=== PATIENT | female | born 2000 | race Caucasian/White ===

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

== ENCOUNTER 2019-09-07 20:01 | Emergency (ER) | payer OTHER ==
--- OUTSIDE RECORDS SUMMARY | 2019-09-07 20:03 | XMS REPORT ---
:2000 Author Organization eClinicalWorks Care Team Providers Name Role Phone Rusty Zulma Provider Role Unavailable Allergies No Known Allergies Problems No Known Problems Medications Medication Code System Code Instructions Start Date End Date Status Dosage Cipro [facility] [id number] 500 MG Orally Feb 01, Feb 02, Active 1 ta blet once a day 2018 2018 Results No Known Results Summary Purpose eClinicalWorks Submission
--- OUTSIDE RECORDS SUMMARY | 2019-09-07 20:03 | XMS REPORT ---
:2000 Author Organization [facility] t Address [address] [place] [address] Care Team Providers Name Role Phone Unavailable Unavailable Unavailable Payers Payer Name Policy Type Policy Number Effective Date Expiration D ate Problems This patient has no known problems. Allergies, Adverse Reactions, Alerts Allergy Name Allergy Status Severity Reaction(s) Onset Inactive Treat ing Comments Type Date Date Clinician Penicillins DA Active U 2019-02 00:00:0 0 Sulfa DA Active U 2019-02 (Sulfonamide -14 Antibiotics) 00:00:0 0 morphine DA Active U 2019-02 00:00:0 0 Medications This patient has no known medications. Results Test Description Test Time Test Comments Text Results Atomic Results Result Comments - US PREG MN 2019-03-13 Patient Name: JESSICA JOHNSON Unit No: [id number] TRANSVAGINAL 11:27:00 EXAMS: CPT CODE: [id number] [facility] TRANSVA GINAL [address] [facility] [address] [place], [place] [address] OBSTETRICAL ULTRASOUND REPORT Pat. Name: ALPESH MALHOTRAALISSA Peters Pat. No: [id number] Study Date: 03/13/2019 10:32am , Age: 06 2000, 18 Pregnancies: 1 LMP: Unk nown GA by US: 04w2d GA Selected: 04w2d (Sonographic) ERIC: 11/18/2019 Referring MD: Richard Moscoso Corrections Caseworker: Ryann Alcazar CPT4: [id number] Admitting MD: Allyssa Moscoso Hist/Ind: VAGINAL BLEEDING SCAN 1 MEASUREMENTS AGE GROWTH EVALUATION Measurement GA Range Srce %for GA Ratios ----- ---- ------- - Sac 0.5 cm 04w2d ([id number]) Hell Sac 50% GA for sonogram 04w2d (34y1s-00n6c) based on (Sac) Avg MATERNAL ANATOMY Ovaries LxHxW (cm) Right 3. 4 x 1.8 x 2.7 Vol: 8.7cc Left 4.4 x 1.8 x 2.2 Vol: 9.1cc Ovarian Cysts LxHxW (cm) L1 : 1.1 x 1.2 x 1.4 Desc: Corpus Luteum CLINICAL SUMMARY THERE IS AN INTRAUTERINE GESTATIONAL SAC WITH YOLK SAC. SIZE IS LESS TH AN LMP DATES BUT PATIENT HAS A HISTORY OF IRREGULAR CYCLES. THE RE IS A SMALL BLEED IN THE FUNDAL REGION-[id number] THE OVARIE S ARE WITHIN NORMAL LIMITS. IMP:EARLY IUP. REC: FOLLOW UP CL INICALLY INDICATED OR IN 2-3 WEEKS FOR PROGRESSION. Th ank you for allowing us to participate in the care of this patient . Loreto Simms M.D. Electro dina Signature 03/13/2019 11:27am [facility] as NAME: JESSICA MALHOTRA Radiology Department PHYS: PANCHITO.Mandy - Richard Moscoso [address] : 2000 AGE: 18 SEX: F [place] [address] LOC: Adalid PETTY PHONE #: [phone] EXAM DATE: 03/13/2019 [facility]: DEP ER FAX #: [phone] RAD NO: Maldonado villarreal 1 Signed Report (CONTINUED) Maldonado vogel Name: JESSICA MALHOTRA Unit No: [id number] EXAMS: CPT CODE: [id number] US PREG UT TRANSVAGINAL 14317 < Continued> Electronically Signed by Elayne Simms MD on 2018 at 1127 Reported and signed by: Elayne rodriguez MD CC: Richard aburto MD Technologist: Alexandra Alcazar, [facility] Probe: [id number] Trnscrbd D/ (1127) t.SDR.CER Orig Print D/T: S: 9 (0800) The [facility] NAME: ALPESH MALHOTRAJOVON Lorraine Radiology Department PHYS: GUTAL.0 1 - TeeRichard [address] : [birth year] AGE: 18 SEX: F [place], [place] [address] LOC: ChynaERS PHONE #: [phone] E XAM DATE: 03/13/2019 STATUS: DEP ER FAX #: [phone] RAD NO: Page 2 Signed Report Patient Name: JESSICA MALHOTRA Unit No: [id number] EXAMS: CPT CODE: [id number] US PREG UT TRANSVAGINAL 28233 <Continued> The [facility] NAME : JESSICA MALHOTRA Radiology Department PHYS: GUTAL.01 - TeeRichard [address] : 2000 AGE: 18 SEX: F [place], [place] [address] LOC: ChynaERS PHONE #: [phone] EXAM DATE: 03/13/2019 STATUS: DEP ER FAX #: RAD NO: Page 3 Signed Report - US PREG 2019-03-13 Patient Name: JESSICA JOHNSON Unit No: [id number] EVAL 1ST 11:27:00 EXAMS: CPT CODE: [id number] US PREG EVAL 1ST T RIMTR [address] [facility] [address] [place], [place] [address] OBSTETRICAL ULTRASOUND REPORT Pat. Name: NIKOS MALHOTRA Pat. No: [id number] Study Date: 03/13/2019 10:32am , Age: 5 2000, 18 Pregnancies: 1 LMP: Unk nown GA by US: 04w2d GA Selected: 04w2d (Sonographic) ERIC: 11/18/2019 Referring MD: RICHARD MOSCOSO Corrections Caseworker: Ryann Alcazar RDMS CPT4: [id number] Admitting MD: ALLYSSA MOSCOSO Hist/Ind: VAGINAL BLEEDING SCAN 1 MEASUREMENTS AGE GROWTH EVALUATION Measurement GA Range Srce %for GA Ratios ----- ---- ------- - Sac 0.5 cm 04w2d (02t2o-04q3j) Hell Sac 50% GA for sonogram 04w2d (14a8m-78m1t) based on (Sac) Avg MATERNAL ANATOMY Ovaries LxHxW (cm) Right 3. 4 x 1.8 x 2.7 Vol: 8.7cc Left 4.4 x 1.8 x 2.2 Vol: 9.1cc Ovarian Cysts LxHxW (cm) L1 : 1.1 x 1.2 x 1.4 Desc: Corpus Luteum CLINICAL SUMMARY THERE IS AN INTRAUTERINE GESTATIONAL SAC WITH YOLK SAC. SIZE IS LESS TH AN LMP DATES BUT PATIENT HAS A HISTORY OF IRREGULAR CYCLES. THE RE IS A SMALL BLEED IN THE FUNDAL REGION-[id number] THE OVARIE S ARE WITHIN NORMAL LIMITS. IMP:EARLY IUP. REC: FOLLOW UP CL INICALLY INDICATED OR IN 2-3 WEEKS FOR PROGRESSION. Th ank you for allowing us to participate in the care of this patient . Loreto Simms M.D. Electro dina Signature 03/13/2019 11:27am [facility] as NAME: JESSICA MALHOTRA Radiology Department PHYS: Richard Moscoso [address] : 2000 AGE: 18 SEX: F [place], [place] [address] LOC: Adalid PETTY PHONE #: [phone] EXAM DATE: 03/13/2019 [facility]: REG ER FAX #: [phone] RAD NO: Maldonado ge 1 Signed Report (CONTINUED) Maldonado vogel Name: JESSICA MALHOTRA Unit No: [id number] EXAMS: CPT CODE: [id number] US PREG EVAL 1ST TRIMTR 17307 < Continued> Electronically Signed by Elayne Simms MD on 2018 at 1127 Reported and signed by: Elayne rodriguez MD CC: Richard aburto MD Technologist: Alexandra Alcazar RDMS Probe: Trnscrbd D/ (1126) t.SDR.CER Orig Print D/T: S: 9 (112) [facility] NAME: ALPESH MALHOTRA Radiology Department PHYS: GUTAL.0 1 - Moscoso,Richard [address] : [birth year] AGE: 18 SEX: F [place], [place] [address] LOC: F.ERS PHONE #: [phone] E XAM DATE: 03/13/2019 STATUS: REG ER FAX #: [phone] RAD NO: Page 2 Signed Report Patient Name: JESSICA MALHOTRA Unit No: [id number] EXAMS: CPT CODE: [id number] US PREG EVAL 1ST TRIMTR 20412 <Continued> The [facility] NAME : JESSICA MALHOTRA Radiology Department PHYS: GUTAL.01 - Moscoso,Richard [address] : 2000 AGE: 18 SEX: F [place], [place] [address] LOC: F.ERS PHONE #: EXAM DATE: 03/13/2019 STATUS: REG ER FAX #: [phone] RAD NO: Page 3 Signed Report HCG SERUM 2019-03-13 11:00:00 Test Item Value Reference Range Comments HCG SERUM (test code = HCG) 5112 INTE RPRETATION:VALUES BETWEEN 15-20 milliInternation al units/mL NEED TO BERETESTED WITHIN 48 HOURS. All units for these ranges are in milliInternation alunits/mL0-1 WK AFTER CONCEPTION 0-50 1-2 WKS AFTER CONCEPTION 40-3002-3 WKS AFTER CONCEPTION 100-1,0003-4 WKS AFTER CONCEPTION 500-6,0001-2 MON THS AFTER CONCEPTION 5,000-200,0002-3 MONTHS AFTER CONCEPTION 10,000-100,0002N D TRIMESTER 3,000-50,0003RD TRIMESTER 1,000-50,000 SPE CIMENS WITH AN HCG LEVEL FROM 0-6 milliInternation alunits/mL SHOULD BE CONSIDERED NEGATIVE COMPREHENSIVE METABOLIC [id number] 10:32:00 Test Item Value Reference Range Comments SODIUM (test code = NA) 141 mEq/L 135-145 POTASSIUM (test code = K) 3.7 mEq/L 3.5-5.0 CHLORIDE (test code = CL) 104 mEq/L 100-115 CARBON DIOXIDE (test code = CO2) 29 mEq/L 22-31 ANION GAP (test code = GAP) 12.00 10-20 GLUCOSE (test code = GLU) 88 mg/dL 65-110 BLOOD UREA NITROGEN (test code = BUN) 7 mg/dL 7-18 GLOMERULAR FILTRATION RATE (test code = GFR) 108 ml/min >60 CREATININE (test code = CREAT) 0.7 mg/dL 0.5-1.0 TOTAL PROTEIN (test code = PROT) 7.4 gm/dL 6.3-8.2 ALBUMIN (test code = ALB) 4.0 gm/dL 3.4-4.8 CALCIUM (test code = CA) 8.6 mg/dL 8.4-10.2 BILIRUBIN TOTAL (test code = BILT) 0.3 mg/dL 0.2-1.0 SGOT/AST (test code = AST) 14 units/L 15-37 SGPT/ALT (test code = ALT) 20 units/L 12-78 ALKALINE PHOSPHATASE TOTAL (test code = ALKP) 51 units/L 46 -116 CBC W/AUTO [id number] 10:16:00 Test Item Value Reference Range Comments WHITE BLOOD CELL (test code = WBC) 5.9 K/mm3 6.6-12.1 RED BLOOD CELL (test code = RBC) 3.94 M/mm3 3.45-5.01 HEMOGLOBIN (test code = HGB) 12.0 g/dL 10.7-13.9 HEMATOCRIT (test code = HCT) 36.1 % 32.1-42.1 MEAN CELL VOLUME (test code = MCV) 92 fL 84.1-94.8 MEAN CELL HGB (test code = MCH) 30.5 pg 27-35 MEAN CELL HGB CONCETRATION (test code = MCHC) 33.2 gm/dL 32 .2-34.1 RED CELL DISTRIBUTION WIDTH (test code = RDW) 12.7 % 12 .4-16.5 PLATELET COUNT (test code = PLT) 223 K/mm3 133-385 IMMATURE PLATELET FRACTION (test code = IPF) 0.0 % 0.0 -10.8 MEAN PLATELET VOLUME (test code = MPV) 10.3 fl 9.1-12.7 NEUTROPHIL % (test code = NT%) 57.4 % 56.5-79.4 LYMPHOCYTE % (test code = LY%) 32.0 % 14.3-34.3 MONOCYTE % (test code = MO%) 8.4 % 5.1-10.4 EOSINOPHIL % (test code = EO%) 1.2 % 0.1-3.0 BASOPHIL % (test code = BA%) 0.8 % 0.1-1.0 NEUTROPHIL # (test code = NT#) 3.4 K/mm3 LYMPHOCYTE # (test code = LY#) 1.9 K/mm3 MONOCYTE # (test code = MO#) 0.5 K/mm3 EOSINOPHIL # (test code = EO#) 0.07 K/mm3 BASOPHIL # (test code = BA#) 0.1 K/mm3 RBC MORPHOLOGY REQUIRED (test code = RBCM) NORMAL LO L PLATELET MORPHOLOGY REQUIRED (test code = PLTMR) NORMAL NORMAL
--- OUTSIDE RECORDS SUMMARY | 2019-09-07 20:04 | XMS REPORT | Summary of Care ---
:2000 Author Organization [facility] Address [address] [place] [address] Care Team Providers Name Role Phone Hal Doherty Primary Care Provider Reason for Referral (Routine) Status Reason Specialty Diagnoses / Referred By Contact Refe rred To Procedures Contact New Request EEG Diagnoses Intractable migraine without aura and without status migrainosus Seizure Syncope and collapse Duglas Cohudhury Procedures Electroencephalogram (EEG) - Duration of test: 20-60 mins MD Lakhwinder [address] [place] [phone] Phone: MRI/CAT Scan (Routine) Status Reason Specialty Diagnoses / Referred By Referred To Procedures Contact Contact New Request Diagnostic Diagnoses Intractable migraine without aura and without status migrainosus Seizure Syncope and collapse Duglas Choudhury Radiology Procedures MR BRAIN WO CONTRAST MD Lakhwinder [address] [place] [phone] Reason for Visit Reason Comments Other spells (Routine) Status Reason Specialty Diagnoses / Procedures Referred By C ontact Referred To Contact Closed Neurology Diagnoses Syncope Migraines Hal Doherty Procedures CONSULT/REFERRAL NEUROLOGY [address] [place] [address] Phone: Encounter Details Date Type Department Care Team Description 07/21/2019 Office Visit [facility] Duglas Choudhury Intractable migraine without aura and without status migrainosus (Primary Dx); [facility] MD Seizure; [address] [place] [address], [address] [place] [phone] Allergies Active Allergy Reactions Severity Noted Date Comments Albuterol Sulfate Other - See comments 07/21/2019 Morphine Hives, Itching 07/21/2019 Penicillins Hives, Shortness of Medium 01/10/2016 Informed by parent Breath Sulfa (Sulfonamide Other - See comments 07/21/2019 C hest pain Antibiotics) documented as of this encounter (statuses as of 07/24/2019) Medications Medication Sig Dispensed Refills Start Date End Date Status lamoTRIgine (LAMICTAL) 150 TAKE ONE (1) 0 12/06/2015 Active mg tablet TABLET(S) BY MOUTH ONCE A DAY. risperiDONE (RISPERDAL) 0.5 TAKE ONE (1) 0 6 Active mg tablet TABLET(S) BY MOUTH ONCE A DAY AT BEDTIME. GILDESS 06/19, , 1-20 TAKE ONE (1) 3 12/27/2015 Active mg-mcg per tablet TABLET(S) BY MOUTH ONCE A DAY. topiramate (TOPAMAX) 25 mg Take 1 tablet 60 tablet 5 6 Active tabletIndications: by mouth 2 Intractable migraine (two) times without aura and without daily. status migrainosus diclofenac (CATAFLAM) 50 mg Take 1 tablet 60 tablet 5 01/15/20 16 Active tablet by mouth as needed for Headache. May repeat dose in 12 hours if needed, no more than 2 doses in 24 hours medroxyPROGESTERone 150 ADM 1 ML IM Q 0 07/07/2019 Active mg/mL injection 3 MONTHS fludrocortisone 0.1 mg 0 07/07/2019 Active tablet documented as of this encounter (statuses as of 07/24/2019) Active Problems Problem Noted Date Intractable migraine without aura and without status m igrainosus 01/10/2016 documented as of this encounter (statuses as of 07/24/2019) Social History Tobacco Use Types Packs/Day Years Used Date Never Smoker Alcohol Use Drinks/Week oz/Week Comments Not Currently Sex Assigned at Date Recorded Not on file Job Start Date Occupation Industry Not on file Not on file Not on file Travel History Travel Start Travel End No recent travel history available. documented as of this encounter Last Filed Vital Signs Vital Sign Reading Time Taken Comments Blood Pressure 99/64 07/21/2019 8:25 AM JUDGE CLERK Pulse 81 07/21/2019 8:25 AM JUDGE CLERK Temperature 36.3 C (97.4 F) 07/21/2019 8:25 AM JUDGE CLERK Respiratory Rate 14 07/21/2019 8:25 AM JUDGE CLERK Oxygen Saturation - - Inhaled Oxygen Concentration - - Weight 61 kg (134 lb 8 oz) 07/21/2019 8:25 AM JUDGE CLERK Height 167.6 cm (5' 6") 07/21/2019 8:25 AM JUDGE CLERK Body Mass Index 21.71 07/21/2019 8:25 AM JUDGE CLERK documented in this encounter Progress Notes Duglas Choudhury MD - 07/21/2019 8:00 AM CST I have verified the medical student documentation and/or findings, including the history, physical exam, and medical decision making for the patient Rosaura Almanza on 07/21/19. Additionally, I have personally performed or re-performed the physical and neurological exam and medical decision making activities of this patient's evaluation and management service. This is a complicated case, trying to figure out if she is having problems with cardiovascular dysfunction or if she might be suffering with an unusual type of epilepsy. Duglas Choudhury MD Home [facility] Music Therapist Neurology HISTORY OF PRESENT ILLNESS: Rosaura Almanza is a 18 year old female who presented to the neurology clinic for episodes of "passing out". Patient has had episodes of passing out since July 03, 2019 and now occur every day. Symptomatology of the episodes varies greatly however the each episode starts with the patient feeling f atigued, dizzy, weak, and having a sense of "derealization". Patient has reported chest pain, "skipping a heart beat", blurry vision, and ringing in the ears during the initial portion of the episodes however none of these symptoms are consistent. After the episode the patient states that she feels confused and doesn't clearly remember any of the episodes. Patient went to a rn pediatric icu on 07/07/2019 and had a normal EKG at her visit. She was given a Holter monitor to assess for any rhythm disturbances and still needs 2 more weeks of monitoring before getting any results back. ROS questions to the patient. Cardiac: chest pain, shortness of breath, easy fatigue, arrhythmia, swelling of legs. Respiratory: cough, with sputum production, wheezing, insomnia. G.I.: nausea, vomiting, diarrhea, poor appetite, blood in stool, difficult swallow. Urinary: pain with urination, blood with urination, incontinence, difficulty urinating. Skin: discoloration, itching, change in hair or nails, skin breakdown. Hematology/immunology: easy bruising, malignancy. Head, nose, throat: ringing of ears, loss of hearing, nosebleeds, sores in mouth, hoarseness, facial pain. Neurology: dizziness, tremor, change in speech, seizures, fainting spells, loss of memory, weakness arm or leg, numbness arm or leg, word finding defect. Endocrine: hot cold intolerance, excessive urination, increased thirst, increased sweating. Psychiatric: disorientation, depression, anxiety, mood disorder, loss of contact with reality, anger. Eyes: change in vision, eye pain, double vision, blurred vision, eyelid droop. Skeletal: pain in joints, muscle pain, back pain, neck pain, swelling of joints, swelling of the hands. Pertinent patient responses: Chest pain, shortness of breath, "skipping a beat", ringing in ears, loss of hearing, dizziness, tremor, fainting spells, loss of memory, disorientation, Change in vision,blurred vision, muscle pain. PMH: No medical problems pertinent to the office visit. There is a question of whether the patient may be suffering from POTS. Current Outpatient Medications: fludrocortisone 0.1 mg tablet, , Disp: , Rfl: medroxyPROGESTERone 150 mg/mL injection, ADM 1 ML IM Q 3 MONTHS, Disp: , Rfl: diclofenac (CATAFLAM) 50 mg tablet, Take 1 tablet by mouth as needed for Headache. May repeat dose in 12 hours if needed, no more than 2 doses in 24 hours, Disp: 60 tablet, Rfl: 5 GILDESS 06/19, 21, 1-20 mg-mcg per tablet, TAKE ONE (1) TABLET(S) BY MOUTH ONCE A DAY., Disp: , Rfl: 3 lamoTRIgine (LAMICTAL) 150 mg tablet, TAKE ONE (1) TABLET(S) BY MOUTH ONCE A DAY., Disp: , Rfl:0 risperiDONE (RISPERDAL) 0.5 mg tablet, TAKE ONE (1) TABLET(S) BY MOUTH ONCE A DAY AT BEDTIME., Disp: , Rfl: 0 topiramate (TOPAMAX) 25 mg tablet, Take 1 tablet by mouth 2 (two) times daily., Disp: 60 tablet, Rfl: 5 No FH or surcial history relevant to visit is presented. Social History Socioeconomic History Marital status: Single Spouse name: Not on file Number of children: Not on file Years of education: Not on file Highest education level: Not on file Occupational History Not on file Social Needs Financial resource strain: Not on file Food insecurity: Worry: Not on file Inability: Not on file Transportation needs: Medical: Not on file Non-medical: Not on file Tobacco Use Smoking status: Never Smoker Substance and Sexual Activity Alcohol use: Not Currently Drug use: Never Sexual activity: Not on file Lifestyle Physical activity: Days per week: Not on file Minutes per session: Not on file Stress: Not on file Relationships Social connections: Talks on phone: Not on file Gets together: Not on file Attends yazidism service: Not on file Active member of club or organization: Not on file Attends meetings of clubs or organizations: Not on file Relationship status: Not on file Intimate partner violence: Fear of current or ex partner: Not on file Emotionally abused: Not on file Physically abused: Not on file Forced sexual activity: Not on file Other Topics Concern Not on file Social History Narrative Not on file Physical Examination Vital signs: BP 99/64 | Pulse 81 | Temp 36.3 C (97.4 F) (Oral) | Resp 14 | Ht 5' 6" (1.676 m) | Wt 134 lb 8 oz (61 kg) | BMI 21.71 kg/m Mental Status: well-kept and appears stated age, alert and oriented times three, cooperative during the exam, attention and concentration normal, telegraph service clerk and expression intact, fund of information normal, recent and remote memory intact, affect/mood normal and relaxed. Cranial nerves (vision, eye movement): EOM intact, equal reactive pupils, accommodation reflex present, full visual recio. Opthalmoloscopic: absent papilledema, optic disc margins sharp, no retinal hemorrhages, exudates not apparent. Cranial nerves (face): normal mastication, facial sensation normal, facial motor normal, corneal reflex not done. Cranial nerves (taste, smell): taste intact by history, smell intact by history. Cranial nerve (hearing): normal conversational hearing, finger rub WNL. Cranial nerve (accessory): normal r/l sternomastoid bulk/tone/power. Shoulder shrug right and left normal. Cranial nerve (tongue): tongue bulk normal, tongue midline, palate centered. Peripheral motor: Arms: Strength, tone, power normal bilaterally. Legs: Strength, tone, power normal bilaterally. Reflexes: Arms: Triceps, biceps, brachioradialis 2+ and symmetrical Legs: Patelllar, ankle jerks 2 + and symmetrical. Toes downgoing bilaterally. Peripheral sensation: Arms: light touch intact, primary sharp touch normal, vibration symmetrical, proprioception normalbilaterally. Legs: light touch intact, primary sharp touch normal, vibration symmetrical, proprioception normal bilaterally. Coordination: Bilateral Uenbsj-np-tycl and finger tapping normal. Bilateral RAH motions symmetrical. Gait: gait normal, arm swing intact, romberg negative. Tandem walk normal, can balance on one foot or the other. HEENT: A/N, no oropharyngeal lesion present, JVD absent, thyromegaly absent, no lymphadenopathy present. Lungs: lungs clear, no wheezing, no rhonchi. Heart: CV RRR, no murmurs, carotid bruits absent. Peripheral vascular: no peripheral cyanosis, clubbing absent, no peripheral edema present, intact peripheral pulses, extremities warm to touch. Musculoskeletal: normal cervical ROM, normal lumbar range of motion, normal cervical torsional movements. No pain with spinal palpation. ASSESSMENT AND RECOMMENDATIONS: ICD-10-CM ICD-9-CM 1. Intractable migraine without aura and without status migrainosus G43.019 346.11 2. Seizure R56.9 780.39 3. Syncope and collapse R55 780.2 1. Assessment: Without the the results of the patient's Holter monitor we are unable to rule out a cardiac/autonomic etiology for the episodes. The patient's physical exam was unremarkable however the patient would likely benefit from an EEG and brain scan to look for signs of epilepsy. Plan: Order an MRI for signs of mesotemporal sclerosis. Order a 30 minute EEG to assess for any electrical abnormalities. Follow-up with cardiology regarding Holter monitor. Creation of the note was aided by utilizing a cut/paste operation of text from a Microsoft Word template created with Visual Studio. The text was dictated into the template via Dragon Naturally Speaking. E CLERK documented in this encounter Plan of Treatment Date Type Specialty Care Team Description 07/25/2019 Appointment EEG Duglas Choudhury MD [address] [place] [address]. [place] [phone] Dilshad Finnegan Eeg 07/31/2019 Office Visit Neurology Duglas Choudhury MD [address] [place], [place] [address]. [place], [place] [phone] Name Type Priority Associated Diagnoses Order S chedule MR BRAIN WO CONTRAST IMAGING Routine Intractable migraine Expected: 07/21/2019, without aura and without Exp ires: 07/21/2020 status migrainos us Seizure Syncope and collapse Health Maintenance Due Date Last Done Comments VARICELLA VACCINES (1 of 2 - 2-dose 10/30/2000 childhood series) MENINGOCOCCAL B VACCINES (1 of 2 - 10/30/2009 Risk Bexsero 2-dose series) DTaP,Tdap,and Td Vaccines (1 - 10/30/2010 Tdap) HPV VACCINES (1 - Female 2-dose 10/30/2010 series) WELL CARE VISIT: 12-21 YEARS 2011 (yearly) CHLAMYDIA SCREENING 2015 INFLUENZA VACCINE (#1) 2019 MENINGOCOCCAL VACCINE Aged Out No longer eligible based on patient's age to complete this topic PNEUMOCOCCAL 0-64 YEARS COMBINED Aged Out No longer eligible based on SERIES patient's age to complete this topic documented as of this encounter Results Not on filedocumented in this encounter Visit Diagnoses Diagnosis Intractable migraine without aura and wi thout status migrainosus - Primary Migraine without aura, with intractable migraine, so stated, without mention of status migrainosus Seizure Other convulsions Syncope and collapse documented in this encounter documented as of this encounter
--- OUTSIDE RECORDS SUMMARY | 2019-09-07 20:05 | XMS REPORT | Summary of Care ---
:1999 Author Organization [facility] Address [address] [place] [address] Care Team Providers Name Role Phone JeremykikeHal collier [place] Primary Care Provider Reason for Visit Reason Comments Orders Encounter Details Date Type Department Care Team Description 07/24/[address] [facility] Duglas Choudhury MD Orders Neurology-[address] [place] [phone] [address] [place] [address] [phone] Allergies Active Allergy Reactions Severity Noted Date Comments Albuterol Sulfate Other - See comments 07/21/2019 Morphine Hives, Itching 07/21/2019 Penicillins Hives, Shortness of Medium 01/10/2016 Informed by parent Breath Sulfa (Sulfonamide Other - See comments 07/21/2019 C hest pain Antibiotics) documented as of this encounter (statuses as of 07/27/2019) Medications Medication Sig Dispensed Refills Start Date [...] as of this encounter (statuses as of 07/27/2019) Active Problems Problem Noted Date Intractable migraine without aura and without status m igrainosus 01/10/2016 documented as of this encounter (statuses as of 07/27/2019) Social History Tobacco Use Types Packs/Day Years Used Date Never Smoker Alcohol Use Drinks/Week oz/Week Comments Not Currently Sex Assigned at Date Recorded Not on file Job Start Date Occupation Industry Not on file Not on file Not on file Travel History Travel Start Travel End No recent travel history available. documented as of this encounter Last Filed Vital Signs Not on filedocumented in this encounter Plan of Treatment Health Maintenance Due Date Last Done Comments [...] Results Not on filedocumented in this encounter Insurance Payer Benefit Plan / Group Subscriber ID Effective Dates Phone Address Type [employer] [id number] 2015-Present H MO/PPO/POS documented as of this encounter
--- OUTSIDE RECORDS SUMMARY | 2019-09-07 20:05 | XMS REPORT | Summary of Care ---
:2000 Author Organization [facility] Address [address] [place] [address] Care Team Providers Name Role Phone Hal Doherty Primary Care Provider Reason for Referral (Routine) Status Reason Specialty Diagnoses / Referred By Contact Refe rred To Procedures Contact New Request EEG Diagnoses Intractable migraine without aura and without status migrainosus Seizure Syncope and collapse Duglas Choudhury Procedures Electroencephalogram (EEG) - Duration of test: 20-60 mins MD Lakhwinder [address] [place] [phone] Phone: MRI/CAT Scan (Routine) Status Reason Specialty Diagnoses / Referred By Referred To Procedures Contact Contact New Request Diagnostic Diagnoses Intractable migraine without aura and without status migrainosus Seizure Syncope and collapse Duglas Choudhury Radiology Procedures MR BRAIN WO CONTRAST MD Lakhwinder [address] [place] [phone] Reason for Visit Reason Comments Other spells (Routine) Status Reason Specialty Diagnoses / Procedures Referred By C ontact Referred To Contact Closed Neurology Diagnoses Syncope Migraines Hal Doherty Procedures CONSULT/REFERRAL NEUROLOGY [address] [place] [address] Phone: Encounter Details Date Type Department Care Team Description 07/21/2019 Office Visit [facility] Duglas Choudhury Intractable migraine without aura and without status migrainosus (Primary Dx); [place] Ke[place] MD Seizure; [address] [place] [address], [address] [place] [phone] Allergies Active Allergy Reactions [...] Comments Blood Pressure 99/64 07/21/2019 8:25 AM PRESS WASHER Pulse 81 07/21/2019 8:25 AM PRESS WASHER Temperature 36.3 C (97.4 F) 07/21/2019 8:25 AM PRESS WASHER Respiratory Rate 14 07/21/2019 8:25 AM PRESS WASHER Oxygen Saturation - - Inhaled Oxygen Concentration - - Weight 61 kg (134 lb 8 oz) 07/21/2019 8:25 AM PRESS WASHER Height 167.6 cm (5' 6") 07/21/2019 8:25 AM PRESS WASHER Body Mass Index 21.71 07/21/2019 8:25 AM PRESS WASHER documented in this encounter Progress Notes Duglas [...] unusual type of epilepsy. Duglas Choudhury MD Bookkeepers Supervisor Neurology HISTORY OF PRESENT ILLNESS: Rosaura Almanza [...] of the episodes. Patient went to a pediatric psychologist on 07/07/2019 and had a normal EKG [...] file Gets together: Not on file Attends denominational service: Not on file Active member of [...] during the exam, attention and concentration normal, office manager receptionist and expression intact, fund of information normal, [...] vibration symmetrical, proprioception normal bilaterally. Coordination: Bilateral Xyiaam-xm-bytu and finger tapping normal. Bilateral RAH motions [...] into the template via Dragon Naturally Speaking. S WASHER documented in this encounter Plan of Treatment Date Type Specialty Care Team Description 07/25/2019 Appointment EEG Duglas Choudhury MD [address] [place] [address]. [place] [address] Dilshad Finnegan Eeg 07/31/2019 Office Visit Neurology Duglas Choudhury MD [address] [place], [place] [address]. [place], [place] [phone] Name Type Priority Associated [...]
[2019-09-07] MEDS ORDERED: ACETAMINOPHEN 500 MG TAB ONE (20:36)
--- NOTE | 2019-09-07 21:37 | RAD REPORT ---
EXAM DESCRIPTION: RAD - Chest Single View - 09/07/2019 8:39 pm CLINICAL HISTORY: fever, cough Chest pain. COMPARISON: Chest Single View dated 09/11/2016; CHEST PA AND LAT 2 VIEW dated 02/22/2013 FINDINGS: Portable technique limits examination quality. The lungs are grossly clear. The heart is normal in size. No displaced fractures. IMPRESSION: No acute intrathoracic process suspected.
[2019-09-07 22:29] LABS: Urine Blood 2+ (NEG); Urine Glucose NEGATIVE (NEG); Urine Protein NEGATIVE (NEG); Urine Specific Gravity 1.015 (1.005-1.030)
--- NOTE | 2019-09-07 23:33 | ER ---
Nurse's Notes [facility] Name: Rosaura Almanza Age: 18 yrs Sex: Female : 2000 Arrival Date: 09/07/2019 Time: 20:02 Bed 13 Private MD: Diagnosis: Acute pharyngitis Presentation: 09/06 20:16 Chief complaint: Patient states: "I haven't been feeling well recently. I am having a jd3 headache sore throat and my right ear is hurting. I do have a history of bad ear infections. I also have been having a fever. All I have taken today is a hydrocodone for my ovarian cysts." denies cough. Coronavirus screen: Patient denies a cough. Patient reports shortness of breath or difficulty breathing. Patient reports a measured and/or subjective temperature greater than 100.4F. Patient denies travel on a cruise ship or to a country the [facility] currently lists as an affected area. Ebola Screen: Patient negative for fever greater than or equal to 101.5 degrees Fahrenheit, and additional compatible Ebola Virus Disease symptoms. Initial Sepsis Screen: Does the patient meet any 2 criteria? Temp <36.0*C (96.8*F)) or > 38.3*C (100.9*F). HR > 90 bpm. Yes Does the patient have a suspected source of infection? No. Patient's initial sepsis screen is negative. Risk Assessment: Do you want to hurt yourself or someone else? Patient reports no desire to harm self or others. Onset of symptoms was September 03, 2019. 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 - Social history:: Smoking status: Patient denies any tobacco usage or history of. Screenin:35 Abuse screen: Denies threats or abuse. Denies injuries from another. Nutritional ca1 screening: No deficits noted. Tuberculosis screening: No symptoms or risk factors identified. Fall Risk None identified. Assessment: 20:35 General: Appears in no apparent distress. comfortable, Behavior is calm, cooperative, ca1 appropriate for age, Reports fever for. Pain: Complains of pain in right ear Pain currently is 8 out of 10 on a pain scale. Pain began 2-3 days ago. Neuro: Level of Consciousness is awake, alert, obeys commands, Oriented to person, place, time, situation, Appropriate for age. Cardiovascular: Heart tones S1 S2 present Capillary refill < 3 seconds Patient's skin is warm and dry. Respiratory: Airway is patent Respiratory effort is even, unlabored, Respiratory pattern is regular, symmetrical, Breath sounds are clear bilaterally. GI: Abdomen is flat, non-distended, Bowel sounds present X 4 quads. Abd is soft and non tender X 4 quads. : No signs and/or symptoms were reported regarding the genitourinary system. EENT: Ear canal clear on left ear and right ear Throat is reddened has enlarged tonsils bilaterally with gag reflex present, Reports R ear pain and drainage and frequent ear infections. Derm: Skin is intact, is healthy with good turgor, Skin is pink, warm \\T\\ dry. Musculoskeletal: Circulation, motion, and sensation intact. Capillary refill < 3 seconds. 21:48 Reassessment: Patient appears in no apparent distress at this time. Patient and/or ca1 family updated on plan of care and expected duration. Pain level reassessed. Patient is alert, oriented x 3, equal unlabored respirations, skin warm/dry/pink. 22:30 General: Appears in no apparent distress. comfortable, Behavior is calm, cooperative, jv1 appropriate for age, Reports fever for. Pain: Complains of pain in left ear and right ear Pain currently is 5 out of 10 on a pain scale. Pain began 2-3 days ago. Neuro: Level of Consciousness is awake, alert, obeys commands, Oriented to person, place, time, situation, Appropriate for age. Cardiovascular: Heart tones S1 S2 present Capillary refill < 3 seconds Patient's skin is warm and dry. Respiratory: Airway is patent Respiratory effort is even, unlabored, Respiratory pattern is Breath sounds are clear bilaterally. GI: Abdomen is flat, non-distended, Bowel sounds present X 4 quads. Abd is soft and non tender X 4 quads. : No signs and/or symptoms were reported regarding the genitourinary system. EENT: Ear canal Throat is reddened has enlarged tonsils bilaterally with gag reflex present. Derm: Skin is intact, is healthy with good turgor, Skin is pink, warm \\T\\ dry. Musculoskeletal: Circulation, motion, and sensation intact. Capillary refill < 3 seconds. Vital Signs: 20:22 BP 92 / 47; Pulse 127; Resp 19 S; Temp 103.3(O); Pulse Ox 100% on R/A; Weight 62.6 kg jd3 (R); Height 5 ft. 5 in. (165.10 cm) (R); Pain 6/10; 20:38 BP 94 / 66; Pulse 110; Resp 18 S; Pulse Ox 100% on R/A; ca1 21:48 BP 102 / 69; Pulse 105; Resp 19 S; Pulse Ox 99% on R/A; ca1 22:06 Temp 102.3(O); ca1 04 00:14 BP 106 / 65; Pulse 89; Resp 18; Temp 99.5; Pulse Ox 98% ; Pain 0/10; jv1 09/06 20:22 Body Mass Index 22.96 (62.60 kg, 165.10 cm) jd3 ED Course: 09/06 20:02 Patient arrived in ED. ds1 20:11 Dante Mueller PA is PHCP. jmm 20:11 Rhys Foster MD is Attending Physician. [facility] 20:17 Anu Fernandez, RN is Primary Nurse. ca1 20:19 Triage completed. jd3 20:23 Arm band placed on. jd3 20:35 Patient has correct armband on for positive identification. Bed in low position. Call ca1 light in reach. Side rails up X 1. Pulse ox on. NIBP on. 20:35 No provider procedures requiring assistance completed. Patient admitted, IV remains in ca1 place. 20:39 Chest Single View XRAY In Process Unspecified. EDMS 22:16 Report received from Anu Fernandez RN. jv1 09/07 08:30 Health Dept notified/ COVID test sent to lab/ PUI # [facility] [id number]/ lab notified. eb Administered Medications: 09/06 20:34 Drug: Tylenol 1000 mg Route: PO; ca1 Outcome: 23:33 Discharge ordered by MD. patel 09/07 00:13 Discharged to home ambulatory. jv1 Condition: stable Discharge instructions given to patient, Instructed on discharge instructions, follow up and referral plans. medication usage, Demonstrated understanding of instructions, follow-up care, medications, Prescriptions given X 1. 00:14 Patient left the ED. jv1 Addendum: 09/11/2019 14:49 Addendum: Other attempted to contact pt regarding negative COVID-19 swab results. Left d m5 message. 09/12/2019 09:01 Addendum: Other pt notified of COVID-19 swab results. d m5 Signatures: Dispatcher [employer] EDMS Charity Coto, RN RN dm5 Dante Mueller PA PA jmm Sanford, Demi ds1 Philip Meade RN RN jd3 Yadira Mahmood Joyce, RN RN jv1 Anu Fernandez RN RN ca1 Corrections: (The following items were deleted from the chart) 09/06 20:23 20:16 Initial Sepsis Screen: Does the patient meet any 2 criteria? HR > 90 bpm. No. jd3 Patient's initial sepsis screen is negative. Does the patient have a suspected source of infection? No. Patient's initial sepsis screen is negative. jd3
--- NOTE | 2019-09-07 23:33 | EDPHYS ---
Physician Documentation [facility] Name: Rosaura Almanza Age: 18 yrs Sex: Female : 2000 Arrival Date: 09/07/2019 Time: 20:02 Bed 13 Private MD: ED Physician Rhys Foster HPI: 09/06 21:04 This 18 yrs old Female presents to ER via Ambulatory with complaints of jmm Fever, Sore Throat, Ear Pain. 21:04 The patient presents with sore throat. Onset: The symptoms/episode began/occurred jmm gradually, 3 day(s) ago. Modifying factors: The symptoms are alleviated by nothing, the symptoms are aggravated by nothing. Associated signs and symptoms: Pertinent positives: chills, earache, fever. This is a 18 year old female with no chronic medical conditions that presents to the ED with complaints of sore throat for 3 days with fever beginning today. Patient denies cough or shortness of breath. Patient states her sister was recently diagnosed with bronchitis and negative for COVD-19. . 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 - Social history:: Smoking status: Patient denies any tobacco usage or history of. ROS: 21:04 Neck: Negative for injury, pain, and swelling, Cardiovascular: Negative for chest pain, jmm palpitations, and edema, Respiratory: Negative for shortness of breath, cough, wheezing, and pleuritic chest pain, Abdomen/GI: Negative for abdominal pain, nausea, vomiting, diarrhea, and constipation. 21:04 Constitutional: Positive for fever. 21:04 ENT: Positive for ear pain, sore throat. 21:04 All other systems are negative. Exam: 21:04 Constitutional: This is a well developed, well nourished patient who is awake, alert, jmm and in no acute distress. Head/Face: atraumatic. Eyes: EOMI, no conjunctival erythema appreciated 21:04 Chest/axilla: Normal chest wall appearance and motion. 21:04 Back: Normal ROM Skin: General appearance color normal MS/ Extremity: Moves all extremities, no obvious deformities appreciated, no edema noted to the lower extremities Neuro: Awake and alert, normal gait Psych: Behavior is normal, Mood is normal, Patient is cooperative and pleasant 21:04 ENT: TM's: erythema, that is mild, on the right, Posterior pharynx: Tonsils: enlarged on the right, enlarged on the left, bilaterally enlarged, with erythema, erythema, that is moderate. 21:04 Neck: Lymph nodes: lymphadenopathy is appreciated, anterior cervical nodes. 21:04 Cardiovascular: Rate: tachycardic, Rhythm: regular. 21:04 Respiratory: the patient does not display signs of respiratory distress, Respirations: normal, Breath sounds: are clear throughout. 21:04 Abdomen/GI: Inspection: abdomen appears normal, Bowel sounds: normal, Palpation: abdomen is soft and non-tender, in all quadrants. Vital Signs: 20:22 BP 92 / 47; Pulse 127; Resp 19 S; Temp 103.3(O); Pulse Ox 100% on R/A; Weight 62.6 kg jd3 (R); Height 5 ft. 5 in. (165.10 cm) (R); Pain 6/10; 20:38 BP 94 / 66; Pulse 110; Resp 18 S; Pulse Ox 100% on R/A; ca1 21:48 BP 102 / 69; Pulse 105; Resp 19 S; Pulse Ox 99% on R/A; ca1 22:06 Temp 102.3(O); ca1 04 00:14 BP 106 / 65; Pulse 89; Resp 18; Temp 99.5; Pulse Ox 98% ; Pain 0/10; jv1 09/06 20:22 Body Mass Index 22.96 (62.60 kg, 165.10 cm) jd3 MDM: 09/06 20:42 Patient medically screened. jorge 23:31 Data reviewed: vital signs, nurses notes. Counseling: I had a detailed discussion with jorge the patient and/or guardian regarding: the historical points, exam findings, and any diagnostic results supporting the discharge/admit diagnosis, lab results, radiology results, the need for outpatient follow up, to return to the emergency department if symptoms worsen or persist or if there are any questions or concerns that arise at home. ED course: Patient is alert and non toxic in appearance. No signs of resp distress. CXR is clear. Patient is advised to follow up with pcp and otherwise given strict return precautions. Patient understood and agrees with the plan of care. . 09/06 20:12 Order name: Flu; Complete Time: 21:08 [facility] 09/06 20:12 Order name: Strep; Complete Time: 21:08 [facility] 09/06 21:06 Order name: Throat Culture [facility] 09/06 21:09 Order name: COVID-19 [facility] 09/06 22:27 Order name: Urine Dipstick--Ancillary (enter results); Complete Time: 22:49 [facility] 09/06 22:27 Order name: Urine --Ancillary (enter results); Complete Time: 22:49 [facility] 09/06 20:12 Order name: Chest Single View XRAY; Complete Time: 21:42 [facility] 09/06 21:11 Order name: Urine Dipstick-Ancillary (obtain specimen); Complete Time: 22:27 [facility] 09/06 21:11 Order name: Urine Test (obtain specimen); Complete Time: 22:27 [facility] Administered Medications: 20:34 Drug: Tylenol 1000 mg Route: PO; ca1 Disposition: 09/07 06:50 Co-signature as Attending Physician, Rhys Foster MD. ma2 Disposition: 09/07/19 23:33 Discharged to Home. Impression: Acute pharyngitis. - Condition is Stable. - Discharge Instructions: Pharyngitis. - Prescriptions for Zithromax Z- Oneil 250 mg Oral Tablet - take 1 tablet by ORAL route as directed for 5 days Day 1 - take two (2) tablets one time. Day 2, 3, 4 , 5 take one (1) tablet once daily.; 6 tablet. - Medication Reconciliation Form, Thank You Letter, Antibiotic Education, Prescription Opioid Use form. - Follow up: Private Physician; When: 2 - 3 days; Reason: Recheck today's complaints, Continuance of care, Re-evaluation by your physician. Signatures: Dispatcher [facility] Dante Mueller PA PA jmm Davies, Jonathon, RN RN jd3 Rhys Foster MD MD ma2 Kaylan Loja RN RN jv1 Anu Fernandez RN RN ca1 Corrections: (The following items were deleted from the chart) 00:14 09/06 23:33 09/07/2019 23:33 Discharged to Home. Impression: Acute pharyngitis. jv1 Condition is Stable. Forms are Medication Reconciliation Form, Thank You Letter, Antibiotic Education, Prescription Opioid Use. Follow up: Private Physician; When: 2 - 3 days; Reason: Recheck today's complaints, Continuance of care, Re-evaluation by your physician. jorge
[2019-09-08 01:00] VITALS: BP 106/65; TEMP 99.5; O2SAT 98
== END 2019-09-08 00:14 | disposition home or self-care (01) ==
LOC: ER 20:01
DX: J02.9 Acute pharyngitis, unspecified (principal); Z88.0 Allergy status to penicillin; Z88.2 Allergy status to sulfonamides; Z88.5 Allergy status to narcotic agent; Z03.818 Encounter for observation for suspected exposure to other biological agents ruled out
CPT/HCPCS: 87070; 81025; 87081; 81003; 87804 ×2; 71045; 99284; U0001

== ENCOUNTER 2020-05-03 06:39 | Emergency (ER) | payer OTHER ==
--- OUTSIDE RECORDS SUMMARY | 2020-05-03 06:41 | XMS REPORT | Continuity of Care Document ---
:2000 Author Organization [facility] t Address [address] [place] [address] Care Team Providers Name Role Phone Macey JAVIER, Gene Attending Clinician Payers Payer Name Policy Type Policy Number Effective Date Expiration Date S ource Problems This patient has no known problems. Allergies, Adverse Reactions, Alerts Allergy Allergy Status Severity Reaction(s) Onset Inactive Treating Comm ents Source Name Type Date Date Clinician Penicill DA Active U 2019- [facility] [place] Sulfa DA Active U 2018-05 [facility] (Sulfona 0-14 [facility] [place] morphine DA Active U 2018-05 [facility] 0[facility] [place] Medications Ordered Filled Start Stop Current Ordering Indication Dosage Frequency Signature Comments Components Source Medication Medication Date Date Medication? Clinician (SIG) Name Name Chriss Cipro 2019- No Zulma 1 tablet [facility] Rusty Kilgore - 00:00: 00:00 [facility] 00 :[facility] l [facility] Clin[facility] Procedures This patient has no known procedures. Encounters Start End Encounter Admission Attending Care Care Encounter Source Date/Time Date/Time Type Type Clinicians Facility Department ID 2019-07-24 2019-07-24 Telephone YOMI Choudhury [id number] 00:00:00 00:00:00 Duglas Borden [id number] [place] [id number] Professio [id number] [facility] 2019-07-21 2019-07-21 Office YOMI Choudhury [id number] 08:11:47 10:09:52 Visit Duglas Borden [id number] [place] [id number] Professio [phone] [facility] 2019-01-20 2019-01-20 Outpatient Concetta Bustillosruslant [id number] [facility] 09:48:00 09:48:00 t Specialty/U Eva kes - Specialty rology Memori a /Urology Clinic l [facility] 2019-01-18 2019-01-18 Outpatient Concetta [place] [id number] [facility] 11:00:00 11:00:00 t Specialty/U Eva kes - Specialty rology Memori a /Urology Clinic l Clinic [facility] Clinics 2019-01-12 2019-01-12 Outpatient [facility] [id number] [address] 13:30:00 13:30:00 t Specialty/U Eva kes - Specialty rology Memori a /Urology Clinic l Clinic [facility] Results Test Description Test Time Test Comments Results Result [facility] Comments - US PREG NH 2019-03-13 Patient Name: TRANSVAGINAL 11:27:00 JESSICA MALHOTRA Unit No: [id number] EXAMS: CPT CODE: [id number] US PREG UT TRANSVAGINAL [address] [facility] [address], [place] [address] OBSTETRICAL ULTRASOUND REPORT Pat. Name: JESSICA MALHOTRA Pat. No: [id number] Study Date: 03/13/2019 10:32am , Age: 06 2000, 18 Pregnancies: 1 LMP: Unknown GA by US: 04w2d GA Selected: 04w2d (Sonographic) ERIC: 11/18/2019 Referring MD: Richard Moscoso Senior Product Engineer: Alexandra Alcazar RDMS CPT4: [id number] Admitting MD: Richard Moscoso Hist/Ind: VAGINAL BLEEDING SCAN 1 MEASUREMENTS AGE GROWTH EVALUATION Measurement GA Range Srce %for GA Ratios ----- ---- ------- ----- Sac 0.5 cm 04w2d ([id number]) Hell Sac 50% GA for sonogram 04w2d (81b7z-93m2x) based on (Sac) Avg MATERNAL ANATOMY Ovaries LxHxW (cm) Right 3.4 x 1.8 x 2.7 Vol: 8.7cc Left 4.4 x 1.8 x 2.2 Vol: 9.1cc Ovarian Cysts LxHxW (cm) L1: 1.1 x 1.2 x 1.4 Desc: Corpus Luteum CLINICAL SUMMARY THERE IS AN INTRAUTERINE GESTATIONAL SAC WITH YOLK SAC. SIZE IS LESS THAN LMP DATES BUT PATIENT HAS A HISTORY OF IRREGULAR CYCLES. THERE IS A SMALL BLEED IN THE FUNDAL REGION-[id number] THE OVARIES ARE WITHIN NORMAL LIMITS. IMP:EARLY IUP. REC: FOLLOW UP CLINICALLY INDICATED OR IN 2-3 WEEKS FOR PROGRESSION. Thank you for allowing us to participate in the care of this patient. Loreto Simms M.D. Electronic Signature 03/13/2019 11:27am [facility] NAME: JESSICA MALHOTRA Radiology Department PHYS: Richard Peguero [address] : 2000 AGE: 18 SEX: F [place], [place] [address] LOC: ChynaBREANNE PHONE #: [phone] EXAM DATE: 03/13/2019 STATUS: IVETH ER FAX #: [phone] RAD NO: Page 1 Signed Report (CONTINUED) Patient Name: JESSICA MALHOTRA Unit No: [id number] EXAMS: CPT CODE: [id number] [facility] TRANSVAGINAL [address] <Continued> at 1127 Reported and signed by: Elayne Simms MD CC: Richard Moscoso MD Technologist: Alexandra Alcazar, [facility] Probe: [id number] Trnscrbd D/ (1127) [email or web address] Orig Print D/T: S: 03/21/2019 (0800) [facility] NAME: JESSICA MALHOTRA Radiology Department PHYS: GUTAL. - Moscoso,Richard [address] : 2000 AGE: 18 SEX: F [place] [address] LOC: ChynaERS PHONE #: [phone] EXAM DATE: 03/13/2019 STATUS: DEP ER FAX #: [phone] RAD NO: Page 2 Signed Report Patient Name: JESSICA MALHOTRA Unit No: [id number] EXAMS: CPT CODE: [id number] US PREG UT TRANSVAGINAL [address] <Continued> [facility] NAME: JESSICA MALHOTRA Radiology Department PHYS: GUTAL. - TeeRichard [address] : 2000 AGE: 18 SEX: F [place] [address] LOC: ChynaERS PHONE #: [phone] EXAM DATE: 03/13/2019 STATUS: DEP ER FAX #: [phone] RAD NO: Page 3 Signed Report - US PREG EVAL 1ST 2019-03-13 Patient Name: TRIMTR 11:27:00 JESSICA MALHOTRA Unit No: [id number] EXAMS: CPT CODE: [id number] US PREG EVAL 1ST TRIMTR [address] [facility] [address], [place] [address] OBSTETRICAL ULTRASOUND REPORT Pat. Name: JESSICA MALHOTRA Pat. No: [id number] Study Date: 03/13/2019 10:32am , Age: 06 2000, 18 Pregnancies: 1 LMP: Unknown GA by US: 04w2d GA Selected: 04w2d (Sonographic) ERIC: 11/18/2019 Referring MD: RICHARD MOSCOSO Senior Product Engineer: Alexandra Alcazar RDMS CPT4: [id number] Admitting MD: RICHARD MOSCOSO Hist/Ind: VAGINAL BLEEDING SCAN 1 MEASUREMENTS AGE GROWTH EVALUATION Measurement GA Range Srce %for GA Ratios ----- ---- ------- ----- Sac 0.5 cm 04w2d (47o2h-49r0c) Hell Sac 50% GA for sonogram 04w2d (02s7a-51d6v) based on (Sac) Avg MATERNAL ANATOMY Ovaries LxHxW (cm) Right 3.4 x 1.8 x 2.7 Vol: 8.7cc Left 4.4 x 1.8 x 2.2 Vol: 9.1cc Ovarian Cysts LxHxW (cm) L1: 1.1 x 1.2 x 1.4 Desc: Corpus Luteum CLINICAL SUMMARY THERE IS AN INTRAUTERINE GESTATIONAL SAC WITH YOLK SAC. SIZE IS LESS THAN LMP DATES BUT PATIENT HAS A HISTORY OF IRREGULAR CYCLES. THERE IS A SMALL BLEED IN THE FUNDAL REGION-[id number] THE OVARIES ARE WITHIN NORMAL LIMITS. IMP:EARLY IUP. REC: FOLLOW UP CLINICALLY INDICATED OR IN 2-3 WEEKS FOR PROGRESSION. Thank you for allowing us to participate in the care of this patient. Loreto Simms M.D. Electronic Signature 03/13/2019 11:27am [facility] NAME: ROSCOEJESSICA Peters Radiology Department PHYS: Richard Peguero [address] : 2000 AGE: 18 SEX: [place] [address] LOC: JACINDA PHONE #: [phone] EXAM DATE: 03/13/2019 STATUS: REG ER FAX #: [phone] RAD NO: Page 1 Signed Report (CONTINUED) Patient Name: JESSICA MALHOTRA Unit No: [id number] EXAMS: CPT CODE: [id number] US PREG EVAL 1ST TRIMTR [address]33 <Continued> at 1127 Reported and signed by: Elayne Simms MD CC: Richard Moscoso MD Technologist: Alexandra Alcazar RDMS Probe: Trnscrbd D/ (1127) [email or web address] Orig Print D/T: S: 03/13/2019 (1127) [facility] NAME: JESSICA MALHOTRA Radiology Department PHYS: GUTAL.01 - TeeRichard [address] : 2000 AGE: 18 SEX: F [place] [address] LOC: ChynaERS PHONE #: [phone] EXAM DATE: 03/13/2019 STATUS: REG ER FAX #: [phone] RAD NO: Page 2 Signed Report Patient Name: JESSICA MALHOTRA Unit No: [id number] EXAMS: CPT CODE: [id number] US PREG EVAL 1ST TRIMTR [address] <Continued> [facility] NAME: JESSICA MALHOTRA Radiology Department PHYS: GUTAL.01 - TeeRichard [address] : 2000 AGE: 18 SEX: F [place] [address] LOC: ChynaERS PHONE #: [phone] EXAM DATE: 03/13/2019 STATUS: REG ER FAX #: [phone] RAD NO: Page 3 Signed Report HCG SERUM 2019-03-13 11:00:00 Test Item Value Reference Range Interpretation Comme nts HCG SERUM (test code = 5112 INTER PRETATION:VALUES BETWEEN 15-20 HCG) milliInternatio nal units/mL NEED TO BERETESTED WITHIN 48 HOURS . All units for these ranges are in milliInternatio nalunits/mL0-1 WK AFTER CONCEPTION 0-5 0 1-2 WKS AFTER CONCEPTION 40-3002-3 WKS AFTER CONCEPTION 100-1,0003-4 WK S AFTER CONCEPTION 500-6,0001-2 MO NTHS AFTER CONCEPTION 5,000-200,0002- 3 MONTHS AFTER CONCEPTION 10,000-100,0002 ND TRIMESTER 3,000-50,0003RD TRIMESTER 1,000-50,000 SP ECIMENS WITH AN HCG LEVEL FROM 0-6 milliInternatio nalunits/mL SHOULD BE CONSIDERED NEGATIVE COMPREHENSIVE METABOLIC [id number] 10:32:00 Test Item Value Reference Range Interpretation Comments SODIUM (test code = NA) 141 mEq/L 135-145 N POTASSIUM (test code = K) 3.7 mEq/L 3.5-5.0 N CHLORIDE (test code = CL) 104 mEq/L 100-115 N CARBON DIOXIDE (test code = CO2) 29 mEq/L 22-31 N ANION GAP (test code = GAP) 12.00 10-20 N GLUCOSE (test code = GLU) 88 mg/dL 65-110 N BLOOD UREA NITROGEN (test code = 7 mg/dL 7-18 N BUN) GLOMERULAR FILTRATION RATE (test 108 ml/min >60 N code = GFR) CREATININE (test code = CREAT) 0.7 mg/dL 0.5-1.0 N TOTAL PROTEIN (test code = PROT) 7.4 gm/dL 6.3-8.2 N ALBUMIN (test code = ALB) 4.0 gm/dL 3.4-4.8 N CALCIUM (test code = CA) 8.6 mg/dL 8.4-10.2 N BILIRUBIN TOTAL (test code = BILT) 0.3 mg/dL 0.2-1.0 N SGOT/AST (test code = AST) 14 units/L 15-37 L SGPT/ALT (test code = ALT) 20 units/L 12-78 N ALKALINE PHOSPHATASE TOTAL (test 51 units/L 46-116 N code = ALKP) CBC W/AUTO [id number] 10:16:00 Test Item Value Reference Range Interpretation Comments WHITE BLOOD CELL (test code = WBC) 5.9 K/mm3 6.6-12.1 L RED BLOOD CELL (test code = RBC) 3.94 M/mm3 3.45-5.01 N HEMOGLOBIN (test code = HGB) 12.0 g/dL 10.7-13.9 N HEMATOCRIT (test code = HCT) 36.1 % 32.1-42.1 N MEAN CELL VOLUME (test code = MCV) 92 fL 84.1-94.8 N MEAN CELL HGB (test code = MCH) 30.5 pg 27-35 N MEAN CELL HGB CONCETRATION (test 33.2 gm/dL 32.2-34.1 N code = MCHC) RED CELL DISTRIBUTION WIDTH (test 12.7 % 12.4-16.5 N code = RDW) PLATELET COUNT (test code = PLT) 223 K/mm3 133-385 N IMMATURE PLATELET FRACTION (test 0.0 % 0.0-10.8 N code = IPF) MEAN PLATELET VOLUME (test code = 10.3 fl 9.1-12.7 N MPV) NEUTROPHIL % (test code = NT%) 57.4 % 56.5-79.4 N LYMPHOCYTE % (test code = LY%) 32.0 % 14.3-34.3 N MONOCYTE % (test code = MO%) 8.4 % 5.1-10.4 N EOSINOPHIL % (test code = EO%) 1.2 % 0.1-3.0 N BASOPHIL % (test code = BA%) 0.8 % 0.1-1.0 N NEUTROPHIL # (test code = NT#) 3.4 K/mm3 LYMPHOCYTE # (test code = LY#) 1.9 K/mm3 MONOCYTE # (test code = MO#) 0.5 K/mm3 EOSINOPHIL # (test code = EO#) 0.07 K/mm3 BASOPHIL # (test code = BA#) 0.1 K/mm3 RBC MORPHOLOGY REQUIRED (test code NORMAL NORMAL = RBCM) PLATELET MORPHOLOGY REQUIRED (test NORMAL NORMAL code = PLTMR)
--- NOTE | 2020-05-03 07:58 | ER ---
Nurse's Notes [facility] Name: Rosaura Almanza Age: 19 yrs Sex: Female : 2000 Arrival Date: 05/03/2020 Time: 06:45 Bed 7 Private MD: Diagnosis: Acute upper respiratory infection, unspecified;Bronchitis, not specified as acute or chronic;Vomiting;Diarrhea, unspecified Presentation: 05/03 07:15 Chief complaint: Patient states: coughing, sneezing, SOB, migraines, sinus pressure, iw vomiting, diarrhea started after Thanksgiving. Coronavirus screen: cough unrelated to allergies, diarrhea, fatigue, fever, vomiting. Client presents with at least one sign or symptom that may indicate coronavirus-19. Standard/surgical mask placed on the client. Provider contacted for isolation considerations. Ebola Screen: Patient negative for fever greater than or equal to 101.5 degrees Fahrenheit, and additional compatible Ebola Virus Disease symptoms Patient denies exposure to infectious person. Patient denies travel to an Ebola-affected area in the 21 days before illness onset. No symptoms or risks identified at this time. Initial Sepsis Screen: Does the patient meet any 2 criteria? No. Patient's initial sepsis screen is negative. Does the patient have a suspected source of infection? No. Patient's initial sepsis screen is negative. Risk Assessment: Do you want to hurt yourself or someone else? Patient reports no desire to harm self or others. Onset of symptoms was April 26, 2020. 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 - Social history:: Smoking status: Patient denies any tobacco usage or history of. - Family history:: not pertinent. Screenin:37 Abuse screen: Denies threats or abuse. Denies injuries from another. Nutritional ph screening: No deficits noted. Tuberculosis screening: No symptoms or risk factors identified. Fall Risk None identified. Assessment: 08:36 General: Appears in no apparent distress. comfortable, well groomed, Behavior is calm, ph cooperative, appropriate for age, Reports chills for fever for > 3 days. Pain: Complains of pain in headache. Neuro: Level of Consciousness is awake, alert, obeys commands, Oriented to person, place, time, situation. Cardiovascular: Capillary refill < 3 seconds in bilateral fingers Patient's skin is warm and dry. Respiratory: Reports shortness of breath on exertion cough that is Airway is patent Respiratory effort is even, unlabored, Respiratory pattern is regular, symmetrical. GI: Abdomen is non-distended, Reports diarrhea, nausea, vomiting, Patient currently denies abdominal pain. EENT: Reports nasal congestion pain when swallowing. Derm: Skin is intact, is healthy with good turgor, Skin is pink, warm \T\ dry. Musculoskeletal: Circulation, motion, and sensation intact. Range of motion: intact in all extremities. Vital Signs: 07:21 BP 104 / 65; Pulse 77; Resp 16; Temp 98.3; Pulse Ox 99% on R/A; Weight 63.5 kg; Height iw 5 ft. 5 in. (165.10 cm); Pain 4/10; 08:39 BP 106 / 64; Pulse 75; Resp 16; Temp 98.4; Pulse Ox 99% on R/A; ph 07:21 Body Mass Index 23.30 (63.50 kg, 165.10 cm) iw ED Course: 06:45 Patient arrived in ED. ag3 07:16 Triage completed. iw 07:23 Efren Dunham MD is Attending Physician. kobe 07:55 Michelle Meek, ANDRE is Primary Nurse. ph 07:56 Cirilo Lopez DO is Referral Physician. kobe 08:38 Arm band placed on. ph 08:38 No provider procedures requiring assistance completed. Patient did not have IV access ph during this emergency room visit. 08:38 COVID swab sent to lab. Flu and/or RSV swab sent to lab. ph 08:39 Patient has correct armband on for positive identification. Bed in low position. Call ph light in reach. Side rails up X 1. Administered Medications: 08:23 Drug: Zithromax 500 mg Route: PO; ph 08:39 Follow up: Response: No adverse reaction ph Outcome: 07:57 Discharge ordered by . kobe 08:38 Discharged to home ambulatory, with significant other. ph 08:38 Condition: good 08:38 Discharge instructions given to patient, Instructed on discharge instructions, follow up and referral plans. medication usage, Demonstrated understanding of instructions, follow-up care, medications, Prescriptions given X 4. 08:40 Patient left the ED. ph Addendum: 05/06/2020 11:44 Addendum: COVID-19 Result: Negative result given to RN to notify pt. Notified pt of i w negative COVID 19 swab results. Pt advised that even with a negative test result they should remain in isolation until symptom free for 3 days without medication. Pt also advised to return to the ED for worsening symptoms. Left voice mail. 12:52 Addendum: COVID-19 Result: Negative result given to RN to notify pt. Notified pt of i w negative COVID 19 swab results. Pt advised that even with a negative test result they should remain in isolation until symptom free for 3 days without medication. Pt also advised to return to the ED for worsening symptoms. Signatures: Efren Dunham MD MD cha Williams, Irene, RN RN iw Hall, Patricia, RN RN ph Gomez, Alice ag3
--- NOTE | 2020-05-03 07:58 | EDPHYS ---
Physician Documentation [facility] Name: Rosaura Almanza Age: 19 yrs Sex: Female : 2000 Arrival Date: 05/03/2020 Time: 06:45 Bed 7 Private MD: ED Physician Efren Dunham HPI: 05/03 07:52 This 19 yrs old Female presents to ER via Ambulatory with complaints of kobe Nausea/Vomiting/Diarrhea. 07:52 The patient presents to the emergency department with nausea, vomiting, that is kobe intermittent. Onset: The symptoms/episode began/occurred 2 day(s) ago. Possible causes: unknown. 07:52 The patient has shortness of breath at rest, with light activity. Duration: The kobe symptoms are continuous, and are steadily getting worse. The patient's shortness of breath has no apparent modifying factors. The symptoms are aggravated by nothing. The symptoms are alleviated by nothing. The patient or guardian reports cough, flu symptoms, arthralgias, low-grade fever, myalgias. Modifying factors: The symptoms are alleviated by nothing. the symptoms are aggravated by nothing. 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 - Social history:: Smoking status: Patient denies any tobacco usage or history of. - Family history:: not pertinent. ROS: 07:52 Constitutional: Negative for fever, chills, and weight loss, Eyes: Negative for injury, kobe pain, redness, and discharge, ENT: Negative for injury, pain, and discharge, Neck: Negative for injury, pain, and swelling, Cardiovascular: Negative for chest pain, palpitations, and edema, Back: Negative for injury and pain, : Negative for injury, bleeding, discharge, and swelling, MS/Extremity: Negative for injury and deformity, Skin: Negative for injury, rash, and discoloration, Neuro: Negative for headache, weakness, numbness, tingling, and seizure, Psych: Negative for depression, anxiety, suicide ideation, homicidal ideation, and hallucinations, Allergy/Immunology: Negative for hives, rash, and allergies, Endocrine: Negative for neck swelling, polydipsia, polyuria, polyphagia, and marked weight changes, Hematologic/Lymphatic: Negative for swollen nodes, abnormal bleeding, and unusual bruising. 07:52 Respiratory: Positive for cough, shortness of breath, at rest. 07:52 Abdomen/GI: Positive for nausea and vomiting, diarrhea. Exam: 07:52 Constitutional: This is a well developed, well nourished patient who is awake, alert, kobe and in no acute distress. Head/Face: Normocephalic, atraumatic. Eyes: Pupils equal round and reactive to light, extra-ocular motions intact. Lids and lashes normal. Conjunctiva and sclera are non-icteric and not injected. Cornea within normal limits. Periorbital areas with no swelling, redness, or edema. ENT: Nares patent. No nasal discharge, no septal abnormalities noted. Tympanic membranes are normal and external auditory canals are clear. Oropharynx with no redness, swelling, or masses, exudates, or evidence of obstruction, uvula midline. Mucous membranes moist. Neck: Trachea midline, no thyromegaly or masses palpated, and no cervical lymphadenopathy. Supple, full range of motion without nuchal rigidity, or vertebral point tenderness. No Meningismus. Chest/axilla: Normal chest wall appearance and motion. Nontender with no deformity. No lesions are appreciated. Cardiovascular: Regular rate and rhythm with a normal S1 and S2. No gallops, murmurs, or rubs. Normal PMI, no JVD. No pulse deficits. Respiratory: Lungs have equal breath sounds bilaterally, clear to auscultation and percussion. No rales, rhonchi or wheezes noted. No increased work of breathing, no retractions or nasal flaring. Abdomen/GI: Soft, non-tender, with normal bowel sounds. No distension or tympany. No guarding or rebound. No evidence of tenderness throughout. Back: No spinal tenderness. No costovertebral tenderness. Full range of motion. Skin: Warm, dry with normal turgor. Normal color with no rashes, no lesions, and no evidence of cellulitis. MS/ Extremity: Pulses equal, no cyanosis. Neurovascular intact. Full, normal range of motion. Neuro: Awake and alert, GCS 15, oriented to person, place, time, and situation. Cranial nerves II-XII grossly intact. Motor strength 5/5 in all extremities. Sensory grossly intact. Cerebellar exam normal. Normal gait. Psych: Awake, alert, with orientation to person, place and time. Behavior, mood, and affect are within normal limits. 07:52 Musculoskeletal/extremity: Tendon exam: specific tendon testing normal through active and passive range of motion DVT Exam: No signs of deep vein thrombosis. no pain, no swelling, no tenderness, negative Homans' sign noted on exam, no appreciated bluish discoloration, no erythema, no increased warmth. Vital Signs: 07:21 BP 104 / 65; Pulse 77; Resp 16; Temp 98.3; Pulse Ox 99% on R/A; Weight 63.5 kg; Height iw 5 ft. 5 in. (165.10 cm); Pain 4/10; 08:39 BP 106 / 64; Pulse 75; Resp 16; Temp 98.4; Pulse Ox 99% on R/A; ph 07:21 Body Mass Index 23.30 (63.50 kg, 165.10 cm) iw MDM: 07:23 Patient medically screened. kobe 07:55 Antibiotic administration: Zithromax is given. Differential diagnosis: Bronchitis kobe Nonspecific abd pain, gastritis, viral gastroenteritis, gastroenteritis. The patient's Wells Deep Vein Thrombosis Score was calculated as follows: Total Score: 0-2 Pts- Low Risk. The patient's pulmonary embolism risk score was calculated as follows: Total Score: 0-2 points. This patient was found to be at low risk for a pulmonary embolism by using the Well's assessment criteria. Immunization status:. Data reviewed: vital signs, nurses notes. Data interpreted: nurse outreach case manager: rate is 77 beats/min, rhythm is regular, Pulse oximetry: is not applicable for this patient encounter. on. Counseling: I had a detailed discussion with the patient and/or guardian regarding: the historical points, exam findings, and any diagnostic results supporting the discharge/admit diagnosis, lab results, radiology results, the need for outpatient follow up, for definitive care, a family practitioner. 05/03 07:51 Order name: Influenza Screen (a \T\ B) [facility] 05/03 07:51 Order name: COVID-19 [facility] Administered Medications: 08:23 Drug: Zithromax 500 mg Route: PO; ph 08:39 Follow up: Response: No adverse reaction ph Disposition: 05/03/20 07:57 Discharged to Home. Impression: Acute upper respiratory infection, unspecified, Bronchitis, not specified as acute or chronic, Vomiting, Diarrhea, unspecified. - Condition is Stable. - Discharge Instructions: Food Choices to Help Relieve Diarrhea, Adult, Diarrhea, Adult, Nausea and Vomiting, Adult, Upper Respiratory Infection, Adult, Cool Mist Vaporizer, Upper Respiratory Infection, Adult, Xzvc-ty-Abso, Diarrhea, Adult, Owvy-bc-Baxs, Cough, Adult. - Prescriptions for Zofran 4 mg Oral Tablet - take 1 tablet by ORAL route every 12 hours As needed; 20 tablet. Medrol (Oneil) 4 mg Oral Tablets, Dose Pack - take 1 tablet by ORAL route as directed - follow package instructions; 1 packet. Zithromax 500 mg Oral Tablet - take 1 tablet by ORAL route once daily for 4 days; 4 tablet. Bromfed DM 2- 30-10 mg/5 mL Oral syrup - take 10 milliliter by ORAL route every 6 hours; 180 milliliter. - Work release form, Medication Reconciliation Form, Thank You Letter, Antibiotic Education, Prescription Opioid Use form. - Follow up: Private Physician; When: 2 - 3 days; Reason: Recheck today's complaints, Continuance of care, Re-evaluation by your physician. Follow up: Cirilo Lopez DO; When: 2 - 3 days; Reason: Recheck today's complaints, Continuance of care, Re-evaluation by your physician. - Problem is new. - Symptoms have improved. Signatures: Dispatcher [employer] EDMS Efren Dunham MD MD cha Williams, Irene, RN RN iw Mihcelle Meek RN RN ph Corrections: (The following items were deleted from the chart) 08:40 07:57 05/03/2020 07:57 Discharged to Home. Impression: Acute upper respiratory ph infection, unspecified; Bronchitis, not specified as acute or chronic; Vomiting; Diarrhea, unspecified. Condition is Stable. Forms are Medication Reconciliation Form, Thank You Letter, Antibiotic Education, Prescription Opioid Use. Follow up: Private Physician; When: 2 - 3 days; Reason: Recheck today's complaints, Continuance of care, Re-evaluation by your physician. Follow up: Cirilo Lopez; When: 2 - 3 days; Reason: Recheck today's complaints, Continuance of care, Re-evaluation by your physician. Problem is new. Symptoms have improved. kobe
[2020-05-03] MEDS ORDERED: AZITHROMYCIN 250 MG TAB ONE (08:12)
[2020-05-08 16:27] VITALS: O2SAT 99
[2020-05-08 16:28] VITALS: BP 106/64; TEMP 98.4
== END 2020-05-03 08:40 | disposition home or self-care (01) ==
LOC: ER 06:39
DX: J40 Bronchitis, not specified as acute or chronic (principal); R19.7 Diarrhea, unspecified; Z20.828 Contact with and (suspected) exposure to other viral communicable diseases; Z88.0 Allergy status to penicillin; Z88.1 Allergy status to other antibiotic agents; Z88.2 Allergy status to sulfonamides; Z88.5 Allergy status to narcotic agent
CPT/HCPCS: 87804 ×2; 99283; U0002